=== PATIENT | male | born 1960 | race Caucasian/White ===

== ENCOUNTER 2019-03-26 00:06 | Emergency (ER) | payer BC ==
[2019-03-26] MEDS ORDERED: Ketorolac 60 MG/2 ML SDV IM ONE (00:22)
--- NOTE | 2019-03-26 00:27 | EDM.PDOC ---
ED HPI GENERAL MEDICAL PROBLEM - General Stated Complaint: LT SIDE PAIN Time Seen by Provider: 03/26/19 00:06 Source of Information: Reports: Patient, Family History Limitations: Reports: No Limitations - History of Present Illness INITIAL COMMENTS - FREE TEXT/NARRATIVE: 58 y.o.w.m with H/O NIDDM came to te ed with his due the left lower ant chest pain, which stared after he got up from the chair last night. No direct trauma. There is no pain at rest, no diaphoresis, excess sweating, N/V no dizziness. No F/C no other acute med issues. BP 121/75 RR 14 Pulse ox 94% on RA Temp 37.1 Pulse 73 Onset Date: 03/25/19 Onset Time: 22:00 Duration: Hour(s):, Intermittent Location: Reports: Chest (wall) Quality: Reports: Dull Severity: Mild Improves with: Reports: Medication, Rest Worsens with: Reports: Movement Context: Reports: Other Associated Symptoms: Reports: No Other Symptoms (pain with inspiration), Chest Pain left side Pain Score (Numeric/FACES): 7 - Related Data Allergies Allergy/AdvReac Type Severity Reaction Status Date / Time Penicillins Allergy Rash Verified 03/26/19 00:44 Home Meds: Home Meds Aspirin [Adult Low Dose Aspirin EC] 81 mg PO DAILY 04/29/14 [History] Multivits,Ca,Minerals/Iron/FA [Thera-M] 1 each PO DAILY 04/29/14 [History] Acetaminophen/HYDROcodone [[place] 325-5 MG] 1 - 2 tab PO Q6H PRN #16 tab [Rx] Lisinopril 10 mg PO DAILY 03/26/19 [History] atorvaSTATin [Lipitor] 10 mg PO DAILY 03/26/19 [History] glipiZIDE [Glipizide ER] 5 mg PO DAILY 03/26/19 [History] metFORMIN HCl [Metformin HCl] 500 mg PO BID 03/26/19 [History] ED ROS GENERAL - Review of Systems Review Of Systems: See Below Constitutional: Reports: No Symptoms HEENT: Reports: No Symptoms Respiratory: Reports: No Symptoms Cardiovascular: Reports: Chest Pain (with left lower chest wall palpation) Endocrine: Reports: Other (H/O NIDDM) GI/Abdominal: Reports: No Symptoms : Reports: No Symptoms Musculoskeletal: Reports: Muscle Pain (left ant chest wall pain with deep insp of palpation) Skin: Reports: No Symptoms Neurological: Reports: No Symptoms Psychiatric: Reports: No Symptoms Hematologic/Lymphatic: Reports: No Symptoms Immunologic: Reports: No Symptoms ED EXAM, GI/ABD - Physical Exam Exam: See Below Exam Limited By: No Limitations General Appearance: Alert, WD/WN, Mild Distress Eyes: Bilateral: Normal Appearance Ears: Normal External Exam, Normal Canal Nose: Normal Inspection, Normal Mucosa, No Blood Throat/Mouth: Normal Inspection, Normal Lips, Normal Voice, No Airway Compromise Head: Atraumatic, Normocephalic Neck: Normal Inspection, Supple, Non-Tender, Full Range of Motion Respiratory/Chest: No Respiratory Distress, Lungs Clear, Normal Breath Sounds, No Accessory Muscle Use, Other (tender left ant chest wall) Cardiovascular: Normal Peripheral Pulses, Regular Rate, Rhythm, No Edema GI/Abdominal Exam: Normal Bowel Sounds (Male) Exam: No Hernia Rectal (Males) Exam: Deferred Back Exam: Normal Inspection, Full Range of Motion Extremities: Normal Inspection, Normal Range of Motion, Non-Tender Neurological: Alert, Oriented, CN II-XII Intact, Normal Cognition, Normal Gait Psychiatric: Normal Affect, Normal Mood Skin Exam: Warm, Dry, Intact, Normal Color, No Rash Lymphatic: No Adenopathy Course - Vital Signs Text/Narrative:: 58 y.o.w.m with H/O NIDDM came to te ed with his due the left lower ant chest pain, which stared after he got up from the chair last night. No direct trauma. There is no pain at rest, no diaphoresis, excess sweating, N/V no dizziness. No F/C no other acute med issues. BP 121/75 RR 14 Pulse ox 94% on RA Temp 37.1 Pulse 73 PE: Morbi obese w m with left ant cehst wall pain with deep inspiration and palpation labs: CBC nl INR 1.13 BUN 20 GFR > 60 Troponin 0.017 AST/ALT elevated Impression: Pleurisy Tx: Toradol, Ice Reexam: Improved 80% Plan: D/C with instructions Last Recorded V/S: Last Vital Signs Temp 37.1 C 03/26/19 00:22 Pulse 73 03/26/19 00:22 Resp 14 03/26/19 00:22 BP 121/75 03/26/19 00:22 Pulse Ox 94 L 03/26/19 00:22 - Orders/Labs/Meds Labs: Laboratory Tests 03/26/19 03/26/19 03/26/19 Range/Units 00:42 00:42 00:42 WBC 7.3 (4.5-12.0) X10-3/uL RBC 4.81 (4.30-5.75) x10(6)uL Hgb 13.7 (13.5-17.8) g/dL Hct 41.4 (30.0-51.3) % MCV 86.1 (80-96) fL MCH 28.4 (27.7-33.6) pg MCHC 33.0 (32.2-35.4) g/dL RDW 13.0 (11.5-15.5) % Plt Count 168 (125-369) X10(3)uL MPV 9.4 (7.4-10.4) fL Neut % (Auto) 61.2 (46-82) % Lymph % (Auto) 26.7 (13-37) % [place] % (Auto) 7.6 (4-12) % Eos % (Auto) 4 (1.0-5.0) % Baso % (Auto) 1 (0-2) % Neut # (Auto) 4.5 (1.6-8.3) # Lymph # (Auto) 1.9 (0.6-5.0) # Gilmer # (Auto) 0.6 (0.0-1.3) # Eos # (Auto) 0.3 (0.0-0.8) # Baso # (Auto) 0.0 (0.0-0.2) # PT 11.4 H (8.7-11.1) INR 1.18 H (0.89-1.13) Sodium 141 (135-145) mmol/L Potassium 3.8 (3.5-5.3) mmol/L Chloride 104 (100-110) mmol/L Carbon Dioxide 27 (21-32) mmol/L BUN 20 H (7-18) mg/dL Creatinine 1.0 (0.70-1.30) mg/dL Est Cr Clr Drug Dosing 78.56 mL/min Estimated GFR (MDRD) > 60 (>60) BUN/Creatinine Ratio 20.0 (9-20) Glucose 231 H (80-116) mg/dL Calcium 9.1 (8.6-10.2) mg/dL Total Bilirubin 0.4 (0.1-1.3) mg/dL Direct Bilirubin 0.11 (0.10-0.20) mg/dL AST 28 H (5-25) IU/L ALT 71 H (12-36) U/L Alkaline Phosphatase 60 (56-112) IU/L Creatine Kinase (60-160) IU/L Troponin I (<0.017-0.056) ng/mL Total Protein 6.9 (6.0-8.0) g/dL Albumin 3.6 (3.2-4.6) g/dL Amylase 30 (25-115) U/L Urine Color (YELLOW) Urine Appearance (CLEAR) Urine pH (5.0-6.5) Ur Specific [place] (1.010-1.025) Urine Protein (NEGATIVE) mg/dL Urine Glucose (UA) (NORMAL) mg/dL Urine Ketones (NEGATIVE) mg/dL Urine Occult Blood (NEGATIVE) Urine Nitrite (NEGATIVE) Urine Bilirubin (NEGATIVE) Urine Urobilinogen (NEGATIVE) mg/dL Ur Leukocyte Esterase (NEGATIVE) Urine RBC (0-5) Urine WBC (0-5) Ur Squamous Epith Cells (NS,R,O) Urine Bacteria (NS) 03/26/19 03/26/19 03/26/19 Range/Units 00:42 00:42 01:10 WBC (4.5-12.0) X10-3/uL RBC (4.30-5.75) x10(6)uL Hgb (13.5-17.8) g/dL Hct (30.0-51.3) % MCV (80-96) fL MCH (27.7-33.6) pg MCHC (32.2-35.4) g/dL RDW (11.5-15.5) % Plt Count (125-369) X10(3)uL MPV (7.4-10.4) fL Neut % (Auto) (46-82) % Lymph % (Auto) (13-37) % [place] % (Auto) (4-12) % Eos % (Auto) (1.0-5.0) % Baso % (Auto) (0-2) % Neut # (Auto) (1.6-8.3) # Lymph # (Auto) (0.6-5.0) # Gilmer # (Auto) (0.0-1.3) # Eos # (Auto) (0.0-0.8) # Baso # (Auto) (0.0-0.2) # PT (8.7-11.1) INR (0.89-1.13) Sodium (135-145) mmol/L Potassium (3.5-5.3) mmol/L Chloride (100-110) mmol/L Carbon Dioxide (21-32) mmol/L BUN (7-18) mg/dL Creatinine (0.70-1.30) mg/dL Est Cr Clr Drug Dosing mL/min Estimated GFR (MDRD) (>60) BUN/Creatinine Ratio (9-20) Glucose (80-116) mg/dL Calcium (8.6-10.2) mg/dL Total Bilirubin (0.1-1.3) mg/dL Direct Bilirubin (0.10-0.20) mg/dL AST (5-25) IU/L ALT (12-36) U/L Alkaline Phosphatase (56-112) IU/L Creatine Kinase 80 (60-160) IU/L Troponin I < 0.017 L (<0.017-0.056) ng/mL Total Protein (6.0-8.0) g/dL Albumin (3.2-4.6) g/dL Amylase (25-115) U/L Urine Color Yellow (YELLOW) Urine Appearance Clear (CLEAR) Urine pH 5.0 (5.0-6.5) Ur Specific [place] 1.030 H (1.010-1.025) Urine Protein Negative (NEGATIVE) mg/dL Urine Glucose (UA) >1000 H (NORMAL) mg/dL Urine Ketones Negative (NEGATIVE) mg/dL Urine Occult Blood Negative (NEGATIVE) Urine Nitrite Negative (NEGATIVE) Urine Bilirubin Negative (NEGATIVE) Urine Urobilinogen Normal (NEGATIVE) mg/dL Ur Leukocyte Esterase Negative (NEGATIVE) Urine RBC 0-5 (0-5) Urine WBC 0-5 (0-5) Ur Squamous Epith Cells Rare (NS,R,O) Urine Bacteria Few H (NS) Meds: Medications Discontinued Medications Generic Name Dose Route Start Last Admin Trade Name Freq PRN Reason Stop Dose Admin Hydrocodone Bitart/Acetaminophen 1 tab 03/26/19 01:44 03/26/19 01:49 [place] 325-5 Mg PO 03/26/19 01:45 1 tab ONETIME ONE Administration Ketorolac Tromethamine 60 mg 03/26/19 00:22 03/26/19 00:29 Toradol IM 03/26/19 00:23 60 mg ONETIME ONE Administration Departure - Departure Time of Disposition: 01:42 Disposition: Home, Self-Care 01 Condition: Good Clinical Impression: Pleurisy - Discharge Information Prescriptions: Acetaminophen/HYDROcodone [[place] 325-5 MG] 1 - 2 tab PO Q6H PRN #16 tab PRN Reason: severe pain Instructions: Pleurisy Referrals: Warren Licea MD [Primary Care Provider] - Forms: ED Return to Work/School Form Additional Instructions: Please take Motrin 800 mg every 6-8 hours and Vicodin every 4 hours for severe pain, please f/u, comeback fi you symptom get worse acutely
[2019-03-26] MEDS ORDERED: Acetaminophen/HYDROcodone 325-5 MG Tab PO ONE (01:44)
== END 2019-03-26 01:55 | disposition home or self-care (01) ==
LOC: FB.ED 00:06
DX: R09.1 Pleurisy (principal); E11.9 Type 2 diabetes mellitus without complications; Z79.82 Long term (current) use of aspirin; Z79.899 Other long term (current) drug therapy; Z88.0 Allergy status to penicillin
CPT/HCPCS: 36415; 80048; 80076; 81001; 82150; 82550; 84484; 85025; 85610; 96372; 99284; A9270; J1885

== ENCOUNTER 2024-07-29 09:37 | Day surgery (SDC) | payer MEDICARE ==
[2024-07-29] MEDS ORDERED: Phenylephrine 0.5% Nasal Spray 15 ML Bot NAS ONE (09:38)
[2024-07-29] MEDS ORDERED: Propofol 200 MG/20 ML SDV IV ONE (09:38)
[2024-07-29] MEDS ORDERED: Ketamine 500 mg/10 ML MDV IV ONE (09:38)
[2024-07-29] MEDS ORDERED: Lidocaine 2% 100 MG/5 ML Syringe IVPUSH ONE (09:38)
[2024-07-29] MEDS ORDERED: Lactated Ringers 1,000 ML IV SCH (11:07)
[2024-07-29] MEDS: Lactated Ringers 1,000 ML IV SCH (11:09)
[2024-07-30] MEDS ORDERED: Lactated Ringers 1,000 ML IV SCH (09:30)
[2024-07-30] MEDS ORDERED: Sodium Chloride 0.9% 10 ML Syringe FLUSH PRN (09:30)
== END 2024-07-29 12:42 | disposition home or self-care (01) ==
LOC: FB.SDS 09:37
PROVIDERS: ATTEND Surgery
DX: Z12.11 Encounter for screening for malignant neoplasm of colon (principal); D12.2 Benign neoplasm of ascending colon; E78.5 Hyperlipidemia, unspecified; Z79.82 Long term (current) use of aspirin; Z79.899 Other long term (current) drug therapy; Z80.0 Family history of malignant neoplasm of digestive organs
CPT/HCPCS: 00811; 82947; 88305; 88341; 88342; A9270-GY; J2704; J3490; J7120